=== PATIENT | male | born 1970 | race Caucasian/White ===

== ENCOUNTER 2022-01-09 12:27 | Outpatient (CLI) | payer BC, SELFPAY ==
--- NOTE | 2022-01-09 01:00 | ECHO_ITS ---
Patient Info Name: Karan Metcalf Age: 51 years : 1970 Gender: Male Ht: 69 in Wt: 205 lbs BSA: 2.15 m2 HR: 58 bpm BP: 142 / 91 mmHg Heart Rhythm: Sinus Rhythm Technical Quality: Fair Exam Date: 01/09/2022 1:19 PM Exam Location: [facility] Patient Status: Outpatient Admit Date: 01/09/2022 Staff Ordering Physician: Kelechi Parsons MD Human Resource Officer: Nisha Deleon RDCS Attending Provider: Kelechi Parsons MD Exam Type: CA echo doppler color flow Study Info Indications - high bp, abn ecg Complete two-dimensional, color flow and Doppler transthoracic echocardiogram is performed. Summary 1. Complete two-dimensional, color flow and Doppler transthoracic echocardiogram is performed. 2. Left ventricular chamber dimension is normal. 3. Left ventricular systolic function is normal, estimated at 60-65%. 4. The left ventricular diastolic function is grade I diastolic dysfunction. 5. E/e' 8 is minimally elevated. 6. There is trace mitral valve regurgitation. 7. No pulmonary hypertension, estimated pulmonary arterial systolic pressure is 24 mmHg. 8. There is mild pulmonic regurgitation. 9. Dilated inferior vena cava with >50% collapse upon inspiration consistent with elevated right atrial pressure, 10 mmHg. Left Ventricle E/e' 8 is minimally elevated. Left ventricular chamber dimension is normal. Left ventricular systolic function is normal, estimated at 60-65%. The left ventricular diastolic function is grade I diastolic dysfunction. Right Ventricle Right ventricular systolic function is normal and with normal TAPSE 2.7 cm. Right ventricular chamber dimension is normal. Left Atria Left atrial chamber dimension is normal. Right Atria Right atrial chamber dimension is normal. Aortic Valve The aortic valve is trileaflet. There is no aortic valve stenosis. There is no aortic valve regurgitation. Pulmonic Valve There is mild pulmonic regurgitation. Mitral Valve There is no mitral valve stenosis. There is trace mitral valve regurgitation. Tricuspid Valve There is no tricuspid valve regurgitation. No pulmonary hypertension, estimated pulmonary arterial systolic pressure is 24 mmHg. Pericardium/Pleural There is no pericardial effusion. Inferior Vena Cava Dilated inferior vena cava with >50% collapse upon inspiration consistent with elevated right atrial pressure, 10 mmHg. Aorta The aortic root size at the sinus of Valsalva is normal. Left Ventricular Outflow Tract Name Value Normal LVOT 2D LVOT Diameter 2.1 cm LVOT Doppler LVOT Peak Velocity 92 cm/s LVOT Peak Gradient 3 mmHg LVOT Mean Gradient 2 mmHg LVOT VTI 18 cm LVOT VTI/AV VTI Ratio 0.8 LVOT Stroke Volume 63 ml Pulmonic Valve Name Value Normal RVOT Doppler
== END 2022-01-09 12:28 | disposition home or self-care (01) ==
LOC: CHSIMG 12:28
PROVIDERS: PCP Internal Medicine; Visit Provider Internal Medicine
DX: R94.31 Abnormal electrocardiogram [ECG] [EKG] (principal); I10 Essential (primary) hypertension
CPT/HCPCS: 93306

== ENCOUNTER 2022-05-24 01:25 | Day surgery (SDC) | payer OTHER, SELFPAY ==
[2022-05-12 13:03] VITALS: BMI 29.5
--- NOTE | 2022-05-23 17:13 | PM.HPGS ---
History of Present Illness History of Present Illness Consent: Risks, benefits, and alternatives have been discussed and questions answered. Patient agrees to proceed with procedure. Chief complaint: family hx colon ca, neoplasm screening Narrative: Karan Metcalf is a 51 year old male referred for colon cancer screening. This is his 1st colonoscopy Review of Systems Review of Systems: All systems reviewed & are unremarkable except as noted in HPI and below PMFSH Social History Social History Smoking status: Never smoker Alcohol intake: current Drinks per week: 2 Substance use: never Substance use type: does not use Living arrangements: with family Spiritual care concerns: No Meds Home Medications and Allergies Home Medications Medication Instructions Recorded Confirmed Type No Home Medications 02/13/22 05/24/22 History Allergies Allergy/AdvReac Type Severity Reaction Status Date / Time Penicillins AdvReac Mild Nose Bleed Verified 05/24/22 07:21 Exam Const: General: alert Orientation/consciousness: patient oriented x3 Resp: Auscultation: clear to auscultation bilaterally Cardio: Rhythm: regular rhythm GI: GI Palp: Yes Soft to palpation and No Tenderness to palpation present (GI) Neuro: General: patient oriented x3 Assessment and Plan Assessment and plan (1) Colon cancer screening: Code(s): Z12.11 - Encounter for screening for malignant neoplasm of colon Status: Acute Assessment and Plan: Colonoscopy with possible biopsy or polypectomy or cautery or injection of substances.
[2022-05-24 07:22] VITALS: BP 122/74; PULSE 71; RESP 16; TEMP 36.4; O2SAT 100; BMI 29.7
[2022-05-24] MEDS: LACTATED RINGERS 1,000 ML 150 ML IV CONT (07:31)
--- NOTE | 2022-05-24 08:21 | P.PNAN_ITS ---
Anes - Initial Pre Proc Eval Procedure: Operation Date: 05/24/22 08:30 Proposed Procedures p Screening Colonoscopy - Luke Ventura MD Date/Time: 05/24/22 08:21 Surgeon: Luke Ventura MD Pre Op Diagnosis: family hx colon ca, neoplasm screening Patient Data Age: 51 Gender: M Height: 1.75 m Weight: 91.3 kg Last Vital Signs Temp 97.6 F 05/24/22 07:22 Pulse 71 05/24/22 07:22 Resp 16 05/24/22 07:22 BP 122/74 05/24/22 07:22 Pulse Ox 100 05/24/22 07:22 O2 Del Method Room Air 05/24/22 07:22 Allergies Allergy/AdvReac Type Severity Reaction Status Date / Time Penicillins AdvReac Mild Nose Bleed Verified 05/24/22 07:21 Home Medications Medication Instructions Recorded Confirmed Type No Home Medications 02/13/22 05/24/22 History Patient hx anesthesia problems: none Family hx anesthesia problems: none Results Review: All pre-operative results and documents have been reviewed as part of the pre-operative evaluation. [facility] Social History Social History Smoking status: Never smoker Alcohol intake: current Drinks per week: 2 Substance use: never Substance use type: does not use Living arrangements: with family Spiritual care concerns: No Anes - Eval Final PreProcedure Day of Procedure 05/24/22 08:21 Patient weight: overweight Heart: regular rate and rhythm Lungs: clear to auscultation Airway: Mallampati scale class II Neurological: alert and oriented Last oral intake: >/= 8 hours ASA classification: II Emergent: no Anesthetic plan: proceed Anesthesia type and monitoring: general GIVS and standard monitoring Results Review: All pre-operative results and documents have been reviewed as part of the pre- operative evaluation. Informed Consent: The patient's anesthetic plan and its attendant risks and benefits were discussed with the patient/family/POA. Questions were solicited and answers provided to the satisfaction of the patient/family/POA.
[2022-05-24] MEDS: SIMETHICONE ORAL SUSPENSION 20 MG/0.3 ML 30 ML BOTTLE 0.6 ML IRRIGATION (08:31)
[2022-05-24 08:42] VITALS: BP 118/83; PULSE 69; RESP 21; O2SAT 97
[2022-05-24 08:52] VITALS: BP 130/81; PULSE 61; RESP 16; O2SAT 97
[2022-05-24 09:02] VITALS: BP 146/88; PULSE 65; RESP 17; O2SAT 100
== END 2022-05-24 09:14 | disposition home or self-care (01) ==
PROVIDERS: PCP Internal Medicine; Visit Provider Internal Medicine Gastroenterology
PROC: 0DJD8ZZ Inspection of Lower Intestinal Tract, Via Natural or Artificial Opening Endoscopic (ICD-10-PCS; CPT 45378; principal; 2022-05-24 08:30)
DX: Z12.11 Encounter for screening for malignant neoplasm of colon (principal); K57.30 Diverticulosis of large intestine without perforation or abscess without bleeding; Z80.0 Family history of malignant neoplasm of digestive organs
CPT/HCPCS: 45378; J2704; J7120

== ENCOUNTER 2023-04-10 07:52 | Outpatient (CLI) | payer OTHER, SELFPAY ==
--- NOTE | ~2023-04-10 | MR_ITS ---
MRI of the right elbow Clinical history: Pain TECHNIQUE: Proton-density and proton-density fat-sat images were acquired in the axial, coronal, and sagittal planes. FINDINGS: Ulnar collateral ligament is intact. Radial collateral ligament and the lateral ulnar colla teral ligament are intact. There is moderate tendinosis of the common extensor tendon origin at the l ateral epicondyle of the humerus, with probable focal low-grade interstitial tear. There is mild tend inosis of the common flexor tendon origin at the medial epicondyle humerus. Bone marrow signals are essentially unremarkable. No significant joint effusion. There is complete rupture of the distal biceps tendon, with retraction of approximately 2 cm. Brachia lis and triceps tendons are intact. IMPRESSION: Complete rupture of the distal biceps tendon with retraction of approximately 2 cm. Moderate tendinosis and possible low-grade interstitial tear at the common extensor tendon origin at the lateral epicondyle of the humerus. Mild tendinosis of the common flexor tendon origin at the medial epicondyle of the humerus. Reviewed, dictated and finalized at location . MANAGER IMPRESSION: Complete rupture of the distal biceps tendon with retraction of approximately 2 cm. Moderate tendinosis and possible low-grade interstitial tear at the common exte nsor tendon origin at the lateral epicondyle of the humerus. Mild tendinosis of the common flexor tendon origin at the medial epicondyle of the humerus.
== END 2023-04-10 07:53 ==
PROVIDERS: PCP Orthopaedic Surgery; Visit Provider Orthopaedic Surgery
DX: S46.211A Strain of muscle, fascia and tendon of other parts of biceps, right arm, initial encounter (principal); M65.221 Calcific tendinitis, right upper arm; X58.XXXA Exposure to other specified factors, initial encounter
CPT/HCPCS: 73221

== ENCOUNTER 2023-04-18 00:31 | Day surgery (SDC) | payer OTHER, SELFPAY ==
[2023-04-11 11:06] VITALS: BMI 30.2
--- NOTE | 2023-04-11 11:25 | PC.NURSE ---
Report to the Outpatient Waiting Room, entrance under the green pavilion located off [facility], at time _10:30AM on date __04/18/23 . Planned Procedure Time: ___12:30PM . Time changes happen often and if your time is changed the preop area will call you the afternoon before. - You and your visitor will be asked to self-screen and do not enter if you have any COVID symptoms. - A mask is optional within the hospital at this time. Patients may have clear liquids (water, carbonated beverages, clear teas, apple juice) until 3 hours prior to surgery with a maximum of 20 ounces. - No food from midnight until time of surgery. Take the following medications with a SIP of water the morning of surgery: ___NONE DO NOT STOP ANY OF YOUR OTHER PRESCRIPTION MEDICATIONS PRIOR TO SURGERY ?EXCEPT THE FOLLOWING Medications to discontinue per physician __HOLD ALL VITAMINS/SUPPLEMENTS 3 DAYS PRE-OP PER ANESTHESIA Date to take last dose____04/14/23 Please no make-up, nail kinyarwanda, hairspray, perfume, deodorant, or body powder the day of surgery. No jewelry (including any body piercings) or valuables the day of surgery, leave them at home. Please take a shower or bath the night before, or the morning of, surgery with an antibacterial soap. Wear comfortable, loose fitting clothing. - Jewelry must be removed prior to entering the operating room. Rings and piercings that are not removed may be cut off. - The hospital will not accept responsibility for valuables. - Please leave all valuables, including medications, at home the day of surgery. If you are going home after surgery, a licensed tractor trailer moving van driver must drive you home. - NO public transportation without another adult if you receive anesthesia. - We recommend that an adult stay with you for 24 hours following discharge. - We also recommend that you do not drive, make important decision, drink alcoholic beverages, or take any drugs that were not prescribed by your health care provider for at least 24 hours after your discharge time. Follow any additional instructions given to you from your surgeon. If you or anyone in your household have experienced Covid symptoms in the past week, please notify your surgeon or the nurse liaison at the phone number below for possible testing. Telephone instructions given to ___PATIENT and asked if any additional questions and then verbalized understanding. Patient advised to call surgeon office or pre surgery nurse liaison [phone] if any additional questions.
--- NOTE | 2023-04-11 13:07 | PM.IMHP ---
H&P: HPI History of Present Illness Date/Time: 04/11/23 13:07 Chief Complaint: Right elbow injury Narrative: injury to right elbow 2 weeks ago while at home lifting. He felt a pop in the anterior elbow. Pain lifting and bending the elbow. Denies numbness or tingling. Had MRI performed in the interim. Review of Systems Constitutional: Constitutional: Denies fever(s) Eyes: Eyes: Denies blurry vision ENT: Reports Normal hearing present Cardiovascular: Cardiovascular: Denies chest pain and Denies dyspnea Respiratory: Respiratory: Denies dyspnea and Denies wheezing Gastrointestinal: Gastrointestinal: Denies abdominal pain Genitourinary: Genitourinary: Denies urinary urgency Musculoskeletal: Musculoskeletal: Reports as per HPI and Denies numbness Integumentary/Breasts: Skin/Breast: Denies changing lesions and Denies sores Neurologic: Reports Normal hearing present, Denies behavioral changes, Denies confusion, Denies numbness and Denies convulsions Psychiatric: Psychiatric: Denies behavioral changes, Denies confusion and Denies hallucinations Endocrine: Endocrine: Denies heat intolerance Hematologic/Lymphatic: Hematologic/Lymphatic: Denies easy bleeding Allergic/Immunologic: Allergic/Immunologic: Denies wheezing [facility] Past Medical History Medical History Rupture of distal biceps tendon Social History Social History Smoking status: Never smoker Alcohol intake: current Drinks per week: 2 Substance use: never Substance use type: does not use Living arrangements: with family Additional living arrangements comments: Spiritual care concerns: No Meds Home Medications and Allergies Home Medications Medication Instructions Recorded Confirmed Type cholecalciferol (vitamin D3) 50 50 mcg PO DAILY 04/11/23 04/11/23 History mcg (2,000 unit) capsule omega 3-qgp-shm-fish oil 1,000 mg 1 cap PO DAILY 04/11/23 04/11/23 History (120 mg-180 mg) capsule (Fish Oil) quercetin 500 mg capsule 500 mg PO DAILY 04/11/23 04/11/23 History zinc 100 mg tablet 100 mg PO DAILY 04/11/23 04/11/23 History Allergies Allergy/AdvReac Type Severity Reaction Status Date / Time Penicillins AdvReac Mild Nose Bleed Verified 04/11/23 11:03 Exam Const: General: healthy appearing; No in distress or confusion Orientation/consciousness: oriented to person, oriented to place, oriented to time and No confusion HENMT: Head: normal to inspection, normocephalic and atraumatic Eyes: Conjunctivae: conjunctivae normal Sclera: sclerae normal Neck: Neck: supple and nontender Resp: Effort & Inspection: normal respiratory effort and no audible wheezes Cardio: Rate: regular rate Rhythm: regular rhythm Skin: General skin exam: no rashes or lesions noted Neuro: General: oriented to person, oriented to place, oriented to time and No confusion Extrem: Right upper extremity: shoulder/upper arm axillary nerve sensory function normal, normal ROM (FF 130, Abd 120, ER 70, IR T7) and other (RC 5/5, Bicep 5/5, Deltoid 5/5, ER 5/5); no tenderness and no swelling, elbow/forearm normal to inspection, tenderness of the medial epicondyle with resisted pronation, swelling of the lateral epicondyle, normal ROM ( Elbow flexion-extension 0 to 140?, pronation 80, supination 80) and other (bicep 5/5, tricep 5/5, pronation 5/5, supination 5/5), wrist normal ROM and radial pulse present; no tenderness and Extremity exam: right hand neuromotor exam abnormal fingers 2-5 ABduction abnormal weak, neurosensory exam normal radial nerve sensory function normal and median nerve sensory function normal, neurosensory exam abnormal ulnar nerve sensory function normal decreased two-point discrimination and decreased light touch sensation and vascular exam radial pulse present and normal capillary refill; no tenderness, no swelling and no cr
[2023-04-18] VITALS (12 sets, daily range): BP systolic 109–144; BP diastolic 64–94; PULSE 66–91; RESP 12–20; TEMP 36.4–36.6; O2SAT 93–99
--- NOTE | ~2023-04-18 | XR_ITS ---
EXAMINATION: XR surgery orthopedic DATE: 04/18/2023 14:00 INDICATION: Right distal biceps tendon repair TECHNIQUE: 3 fluoroscopic images of the right elbow were obtained during procedure performed by Dr. Klaus csota. Radiologist was not present for the imaging or procedure. The amount of fluoroscopy time used during this procedure was 0.3 minutes. COMPARISON: Right forearm radiograph dated 04/04/2023 FINDINGS: There are several small surgical clips and a region of lucent likely postoperative gas in the soft ti ssues at the right antecubital fossa. A metallic button is seen at the level of the radial tuberosity consistent with an anchor for a biceps brachii avulsion repair. Bone alignment is normal. No fractur e. Joint spaces appear relatively preserved. IMPRESSION: 1. Fluoroscopy utilized during reported distal right biceps tendon repair. See procedure note for fur ther detail. Reviewed, dictated and finalized at location A. WELDER IMPRESSION: 1. Fluoroscopy utilized during reported distal right biceps tendon repair. See procedure note for further detail.
--- NOTE | 2023-04-18 10:56 | WPDHPUPDATE1 ---
History and Physical Update Update Date/Time: 04/18/23 10:56 History and Physical has been reviewed, including an updated exam of the patient. There are NO changes in the patient's condition. Risks, benefits, and alternatives have been discussed and questions answered. Patient agrees to proceed with procedure.
[2023-04-18] MEDS: ACETAMINOPHEN 500 MG TABLET 1000 MG PO (11:06)
[2023-04-18] MEDS: KETOROLAC 15 MG/ML VIAL (*BKC) IV PUSH (11:08)
--- NOTE | 2023-04-18 11:10 | WPDANESEPPF ---
Anes - Initial Pre Proc Eval Procedure: Operation Date: 04/18/23 12:30 Proposed Procedures p Right Distal Biceps Tendon Repair - Serjio Wood MD Date/Time: 04/18/23 11:10 Surgeon: Serjio Wood MD Pre Op Diagnosis: right elbow distal biceps rupture Patient Data Age: 52 Gender: M Height: 1.75 m Weight: 93 kg Allergies Allergy/AdvReac Type Severity Reaction Status Date / Time Penicillins AdvReac Mild Nose Bleed Verified 04/18/23 10:38 Home Medications Medication Instructions Recorded Confirmed Type cholecalciferol (vitamin D3) 50 50 mcg PO DAILY 04/11/23 04/11/23 History mcg (2,000 unit) capsule omega 7-blu-qqq-fish oil 1,000 mg 1 cap PO DAILY 04/11/23 04/11/23 History (120 mg-180 mg) capsule (Fish Oil) quercetin 500 mg capsule 500 mg PO DAILY 04/11/23 04/11/23 History zinc 100 mg tablet 100 mg PO DAILY 04/11/23 04/11/23 History Patient hx anesthesia problems: none Family hx anesthesia problems: none Results Review: All pre-operative results and documents have been reviewed as part of the pre-operative evaluation. [facility] Past Medical History Medical History Rupture of distal biceps tendon Social History Social History Smoking status: Never smoker Alcohol intake: current Drinks per week: 2 Substance use: never Substance use type: does not use Living arrangements: with family Additional living arrangements comments: Spiritual care concerns: No Anes - Eval Final PreProcedure Day of Procedure 04/18/23 11:10 Patient weight: overweight Heart: regular rate and rhythm Lungs: clear to auscultation Airway: Mallampati scale class II Neurological: alert and oriented Last oral intake: >/= 8 hours ASA classification: II Emergent: no Anesthetic plan: proceed Anesthesia type and monitoring: general LMA and standard monitoring Results Review: All pre-operative results and documents have been reviewed as part of the pre-operative evaluation. Informed Consent: The patient's anesthetic plan and its attendant risks and benefits were discussed with the patient/family/POA. Questions were solicited and answers provided to the satisfaction of the patient/family/POA.
[2023-04-18] MEDS: LACTATED RINGERS 1,000 ML 30 ML IV CONT ×3 (11:13→16:15)
[2023-04-18] MEDS: ceFAZolin 2 GM/D5W 50 ML 2 GM/50 ML BAG IVPB (12:00)
[2023-04-18] MEDS: BUPivacaine HCL 0.5% 10 ML AMP 20 ML INFILTRATE (12:31)
--- NOTE | 2023-04-18 14:30 | W.PM.PROC2 ---
Procedure Note - Detailed Date of Procedure 04/18/23 Pre-op Diagnosis right elbow distal biceps rupture Post-op Diagnosis Same Procedure Performed Repair right elbow distal biceps Surgeon Serjio Wood MD Methods Analyst Data Processing 1st visual merchandising assistant Anesthesia General Indications 52yo right elbow distal biceps rupture. Findings Complete rupture of distal biceps tendon with 2cm retraction Description of Procedure Patient identified in the preoperative holding. Informed consent given. Operative extremity marked. Patient received intravenous antibiotics. Patient brought to the operating room where underwent general anesthetic by anesthesia team. Positioned supine on operating room table. Time-out performed confirming the patient, site of the surgery and the plan. Right arm prepped draped usual sterile surgical fashion using a ChloraPrep skin solution. Arm exsanguinated and proximal arm tourniquet inflated to 250 mm Hg. Local anesthetic with 0.5% Marcaine plain. Transverse incision made 4 cm distal to the antecubital crease with a 15 blade knife. Hemostasis controlled electrocautery. Blunt dissection was then used to protect the neurovascular elements and was carried down through the fascia. The lacertus fibrosus was noted to be intact. Deep to this the biceps tendon was completely ruptured. The tendon was brought out of the wound. The end of it was debrided with a tenotomy scissor. Whipstitch with 2. FiberWire was placed in the tendon. The bone tunnel was then prepared. Dissection was carried down to the radial tuberosity. Several veins were encountered which were ligated. Soft tissue was cleared from the radial tuberosity. A guide pin was placed and verified with image intensification. The tendon was sized and noted to be 8 mm diameter. An 8 mm Reamer was then used to ream the proximal cortex. Suture Endobutton was then placed on the whipstitch and passed through the radius to the far cortex. This was verified with image intensification. Biceps was then docked into the bone tunnel. Thorough irrigation and removal of the bone fragments were was done prior to docking. The 1 and of FiberWire was passed through the tendon and secured. 8 by10 mm Endobutton was then placed to bring the tendon more ulnar word. Image intensification confirm the final placement. Wound was irrigated thoroughly. Subcutaneous tissue repaired with 3-0 Monocryl interrupted suture. Skin repaired with running 3-0 Monocryl subcuticular stitch and glue. Sterile dressing applied. The patient was then woken from anesthesia, extubated and taken to the recovery room in stable condition. All sponge, needle, instrument counts were correct at the end of the case. Implants Arthrex 8X10mm endobutton + suture button Estimated Blood Loss 20 Tourniquet Time Total Tourniquet Time: 95 Drains No Packing No Pathology None sent Complications None Condition Stable Disposition PACU [facility] Billing Surgery - Charge Forward: Surgery Billing ([id number])
[2023-04-18] MEDS: fentaNYL CITRATE INJ (*CRX) 100 MCG/2 ML VIAL 25 MCG IV PUSH ×8 (14:37→17:02)
[2023-04-18] MEDS: oxyCODONE HCL (*CRX) 5 MG TAB IR PO (15:36)
[2023-04-18] MEDS: HYDROmorphone HCL INJ (*CRX) 1 MG/ML SYR 0.5 MG IV PUSH ×2 (17:18→17:23)
== END 2023-04-18 18:07 | disposition home or self-care (01) ==
PROVIDERS: PCP Internal Medicine; Visit Provider Orthopaedic Surgery
PROC: (CPT 24341; principal; 2023-04-18 12:30)
DX: S46.211D Strain of muscle, fascia and tendon of other parts of biceps, right arm, subsequent encounter (principal); X50.0XXA Overexertion from strenuous movement or load, initial encounter
CPT/HCPCS: 24342; 99199; A4565; A9270; C1713; J0690; J1100; J1170; J1885; J2250; J2405; J2704; J3010; J7120